=== PATIENT | female | born 1940 | race Caucasian/White ===

== ENCOUNTER 2018-09-20 17:07 | Observation (INO) | payer OTHER, MEDICAID ==
[~2018-09-20] VITALS: Ht 160 cm; Wt 77.8 kg
[2018-09-20] MEDS ORDERED: ASPIRIN 81 MG TAB PO STA (17:59)
[2018-09-20] MEDS ORDERED: NITROGLYCERIN 2% 1 GM OINT PKT TD STA (17:59)
[2018-09-20] MEDS ORDERED: NITROGLYCERIN (SL) 0.4 MG TAB SL PRN ×2 (18:00→22:00)
[2018-09-20] MEDS ORDERED: TOLT4CAP13 PO (18:38)
[2018-09-20] MEDS ORDERED: ASPI-817 PO (18:39)
[2018-09-20] MEDS ORDERED: DOCU-144 PO (18:39)
[2018-09-20] MEDS ORDERED: CALC-43 PO (18:39)
[2018-09-20] MEDS ORDERED: ATOR20TA38 PO (18:40)
[2018-09-20] MEDS ORDERED: LOSA50TA14 PO (18:40)
[2018-09-20] MEDS ORDERED: HYDR25TA6 PO (18:41)
[2018-09-20] MEDS ORDERED: ACAR25TA8 PO (18:41)
[2018-09-20] MEDS ORDERED: RANI150T5 PO (18:41)
[2018-09-20] MEDS ORDERED: LORA10TA3 PO (18:42)
[2018-09-20] MEDS ORDERED: SULF1TAB31 PO (18:42)
[2018-09-20] MEDS ORDERED: ACETAMINOPHEN 325 MG TAB PO PRN ×2 (19:30→22:00)
[2018-09-20] MEDS ORDERED: ONDANSETRON 4 MG INJ IV PRN ×2 (19:30→22:00)
--- NOTE | 2018-09-20 19:31 | ERD ---
ER Documentation Chief Complaint Chief Complaint CHEST PAIN X 3 DAYS HPI Patient is a 78-year-old female with hypertension and diabetes who presents with chest pain. The patient was sent by Dr. Gordon her primary doctor for chest pain and abnormal EKG. The pain is left-sided and started yesterday. She says that it just a constant pain. She has had no treatment as of yet. ROS All systems reviewed and are negative except as per history of present illness. Medications Home Meds Reported Medications Sulfamethoxazole/Trimethoprim* (Bactrim Ds* Tablet) 1 Each Tablet, 1 TAB PO BID, TAB END DATE 09/20/18 09/20/18 Loratadine* (Loratadine*) 10 Mg Tablet, 10 MG PO DAILY, #30 TAB 09/20/18 Ranitidine Hcl* (Ranitidine Hcl*) 150 Mg Tablet, 150 MG PO Q12, #60 TAB 09/20/18 Acarbose* (Precose*) 25 Mg Tablet, 25 MG PO WITH BREAKFAST, TAB 09/20/18 Hydrochlorothiazide* (Hydrochlorothiazide*) 25 Mg Tab, 25 MG PO DAILY, #30 TAB 09/20/18 Losartan Potassium* (Losartan Potassium*) 50 Mg Tablet, 50 MG PO DAILY, TAB 09/20/18 Atorvastatin Calcium* (Atorvastatin Calcium*) 20 Mg Tablet, 20 MG PO QHS, #30 TAB 09/20/18 Docusate Sodium* (Colace*) 100 Mg Capsule, 100 MG PO BID, #60 CAP 09/20/18 Aspirin* (Aspirin* EC) 81 Mg Tablet.dr, 81 MG PO DAILY, TAB 09/20/18 Calcium Carbonate/Vitamin D3 (Calcium 500 + Vit D 400 Tablet) 1 Each Tablet, 1 EACH PO BID, TAB 09/20/18 Tolterodine Tartrate* (Tolterodine Tartrate* ER) 4 Mg Cap.er.24h, 4 MG PO DAILY, #30 CAP 09/20/18 Allergies Allergies: Coded Allergies: No Known Allergy (Verified , 09/20/18) FmHx Family History: coronary disease Physical Exam Vitals Vital Signs Date Temp Pulse Resp B/P (MAP) Pulse Ox O2 O2 Flow FiO2 Time Delivery Rate 09/20/18 87 20 101/69 99 Room Air 18:46 (80) 09/20/18 98.0 78 18 245/154 94 17:12 (184) Physical Exam Const: No acute distress Head: Atraumatic Eyes: Normal Conjunctiva ENT: Normal External Ears, Nose and Mouth. Neck: Full range of motion. No meningismus. Resp: Clear to auscultation bilaterally Cardio: Regular rate and rhythm, no murmurs Abd: Soft, non tender, non distended. Normal bowel sounds Skin: No petechiae or rashes Back: No midline or flank tenderness Ext: No cyanosis, or edema Neur: Awake and alert Psych: Normal Mood and Affect Result Diagram: 09/20/18180909/20/181809 Results 24 hrs Laboratory Tests Test 09/20/18 18:10 White Blood Count 9.0 10^3/ul Red Blood Count 5.00 10^6/ul Hemoglobin 14.9 g/dl Hematocrit 45.9 % Mean Corpuscular Volume 91.8 fl Mean Corpuscular Hemoglobin 29.8 pg Mean Corpuscular Hemoglobin Concent 32.5 g/dl Red Cell Distribution Width 13.7 % Platelet Count 245 10^3/UL Mean Platelet Volume 10.6 fl Immature Granulocytes % 0.600 % Neutrophils % 65.0 % Lymphocytes % 23.7 % Monocytes % 8.3 % Eosinophils % 2.0 % Basophils % 0.4 % Nucleated Red Blood Cells % 0.0 /100WBC Immature Granulocytes # 0.050 10^3/ul Neutrophils # 5.9 10^3/ul Lymphocytes # 2.1 10^3/ul Monocytes # 0.8 10^3/ul Eosinophils # 0.2 10^3/ul Basophils # 0.0 10^3/ul Nucleated Red Blood Cells # 0.0 10^3/ul Sodium Level 137 mmol/L Potassium Level 4.7 mmol/L Chloride Level 99 mmol/L Carbon Dioxide Level 29 mmol/L Anion Gap 9 Blood Urea Nitrogen 19 mg/dl Creatinine 1.01 mg/dl Est Glomerular Filtrat Rate mL/min mL/min Glucose Level 128 mg/dl Calcium Level 9.9 mg/dl Troponin I < 0.012 ng/ml Current Medications Medications Dose Sig/Any Start Time Status Last (Trade) Ordered Route PRN Stop Time Admin Dose Reason Admin Aspirin 162 mg ONCE STAT 09/20/18 DC 09/20/18 (Aspirin) PO 17:59 18:26 09/20/18 18:00 1 inch ONCE STAT 09/20/18 DC 09/20/18 Nitroglycerin TD 17:59 18:26 09/20/18 18:00 (Nitroglyceri n 2% Oint) 1 tab Q5M UP TO 3 09/20/18 09/20/18 Nitroglycerin DOSES PRN 18:00 18:27 SL .CHEST (Nitroglyceri PAIN n (Sl Tab) 0.4 Mg) Ondansetron 4 mg ER BRIDGE 09/20/18 HCl (Zofran PRN IV 19:30 Inj) NAUSEA/VOMITI 09/21/18 19:29 NG 650 mg ER BRIDGE 09/20/18 Acetaminophen PRN PO 19:30 (Tylenol .MILD PAIN 09/21/18 19:29 Tab) 1-3 OR TEMP Procedures/MDM EKG read by me: Rate/Rhythm: Regular rate and rhythm at a normal rate Intervals: Normal Impression: No evidence of ischemia or arrhythmia Chest x-ray read by radiology. Patient is a 78-year-old female with multiple cardiac risk factors who presents with chest pain. I am concerned for potential acute coronary syndrome. Initial troponin is negative. I doubt pneumonia, pneumothorax, pulmonary embolism, or aortic dissection. The patient will be admitted to a telemetry observation bed under the care of Dr. Olivier. The patient was given aspirin and nitroglycerin. Departure Diagnosis: Primary Impression: Chest pain Chest pain type: unspecified Qualified Codes: R07.9 - Chest pain, unspecified Condition: EH Soni MD Sep 20, 2018 19:31
[2018-09-20] MEDS ORDERED: morphine 4 MG/ML VIAL IV STA (20:45)
--- NOTE | 2018-09-20 21:54 | HP ---
Date/Time of Note Date/Time of Note DATE: 09/20/18 TIME: 21:53 Assessment/Plan VTE Prophylaxis Pharmacological prophylaxis: heparin Lines/Catheters IV Catheter Type (from Nrsg): Saline Lock Assessment/Plan Hospital Course Objective Physical exam General: Patient is laying in bed and answers questions appropriately Mentation: Patient is alert and oriented 4, Head: Normocephalic atraumatic Eyes: EOMI, pupils reactive to light Neck: Supple, nontender, midline Respiratory: Clear to auscultation bilaterally Cardiovascular: regular rate, no obvious murmurs Gastrointestinal: non-tender to palpation, bowel sounds heard. Neurological: Moves all extremities spontaneously Skin: No new skin lesions Assessment and plan Chest pain -Rule out ACS -EKG noted -Troponin negative, will continue to trend -Echocardiogram pending -If chest pain began yesterday, if true PA, troponin should have been elevated already, this is unlikely an PA but most likely musculoskeletal discomfort -Aspirin, statin Diabetes mellitus -Insulin sliding scale while in house Hypertension -Continue home meds Disposition -Rule out ACS, likely DC tomorrow if troponins negative. Result Diagram: 09/20/18 1810 09/20/18 1810 Results 24hrs Laboratory Tests Test 09/20/18 18:10 White Blood Count 9.0 Red Blood Count 5.00 Hemoglobin 14.9 Hematocrit 45.9 Mean Corpuscular Volume 91.8 Mean Corpuscular Hemoglobin 29.8 Mean Corpuscular Hemoglobin Concent 32.5 Red Cell Distribution Width 13.7 Platelet Count 245 Mean Platelet Volume 10.6 H Immature Granulocytes % 0.600 H Neutrophils % 65.0 Lymphocytes % 23.7 Monocytes % 8.3 Eosinophils % 2.0 Basophils % 0.4 Nucleated Red Blood Cells % 0.0 Immature Granulocytes # 0.050 H Neutrophils # 5.9 Lymphocytes # 2.1 Monocytes # 0.8 Eosinophils # 0.2 Basophils # 0.0 Nucleated Red Blood Cells # 0.0 Sodium Level 137 Potassium Level 4.7 Chloride Level 99 Carbon Dioxide Level 29 Anion Gap 9 Blood Urea Nitrogen 19 Creatinine 1.01 H Est Glomerular Filtrat Rate mL/min Glucose Level 128 Calcium Level 9.9 Troponin I < 0.012 HPI/ROS Admit Date/Time Admit Date/Time Hx of Present Illness Patient is a female the past medical history significant for hypertension and diabetes mellitus who presents to [facility] after being sent by her primary care doctor to get chest pain rule out. According to patient and patient's family at bedside who helped with the story patient was having left-sided chest pain since yesterday at an unspecified time. Patient states that although it is mildly improved it is still persistent. Patient states that there was mild radiation to the left neck and some to the left upper extremity. Patient otherwise appears comfortable and denies any shortness of breath abdominal pain, nausea, vomiting, leg pain, headache. PMH/Family/Social Past Medical History Medications Current Medications Nitroglycerin (Nitroglycerin (Sl Tab) 0.4 Mg) 1 tab Q5M UP TO 3 DOSES PRN SL . CHEST PAIN Last administered on 09/20/18at 18:27; Admin Dose 1 TAB; Start 09/20/18 at 18:00 Ondansetron HCl (Zofran Inj) 4 mg ER BRIDGE PRN IV NAUSEA/VOMITING; Start 09/20/18 at 19:30; Stop 09/21/18 at 19:29 Acetaminophen (Tylenol Tab) 650 mg ER BRIDGE PRN PO .MILD PAIN 1-3 OR TEMP Last administered on 09/20/18at 21:07; Admin Dose 650 MG; Start 09/20/18 at 19:30; Stop 09/21/18 at 19:29 Atorvastatin Calcium (Lipitor) 80 mg HS PO ; Start 09/20/18 at 22:00 Coded Allergies: No Known Allergy (Verified , 09/20/18) Social History Smoking Status: Never smoker Exam/Review of Systems Vital Signs Vitals Vital Signs Date Temp Pulse Resp B/P (MAP) Pulse Ox O2 O2 Flow FiO2 Time Delivery Rate 09/20/18 Nasal 2 21:11 Cannula 09/20/18 75 15 101/62 95 21:07 (75) 09/20/18 98.0 17:12 TERRY HARGROVE Sep 20, 2018 21:54
[2018-09-20] MEDS ORDERED: ATORVASTATIN 80 MG TAB PO SCH (22:00)
[2018-09-20] MEDS ORDERED: GLUCOSE GEL 15 GRAM TUBE PO PRN ×2 (22:00)
[2018-09-20] MEDS ORDERED: HYDROCODONE/APAP (5/325) TAB PO PRN (22:00)
[2018-09-20] MEDS ORDERED: DEXTROSE 50% 50 ML SYRINGE IV PRN ×2 (22:00)
[2018-09-20] MEDS ORDERED: GLUCOSE GEL 15 GRAM TUBE BUCCAL PRN (22:00)
[2018-09-20] MEDS ORDERED: GLUCAGON 1 MG INJ IM PRN (22:00)
[2018-09-20] MEDS ORDERED: morphine 2 MG INJ IV PRN (22:00)
[2018-09-20] MEDS ORDERED: NACL 0.9% 3 ML SYG IV SCH (22:00)
[2018-09-20 22:10] VITALS: BP 118/56; PULSE 70; RESP 20; Ht 160 cm; Wt 77.8 kg
[2018-09-20 22:21] VITALS: PULSE 70
[2018-09-20] MEDS: HEPARIN 5,000 UNIT/1 ML VIAL SC SCH (23:04)
[2018-09-21] VITALS (9 sets, daily range): BP systolic 105–140; BP diastolic 51–60; PULSE 69–88; RESP 16–20
[2018-09-21] MEDS ORDERED: ACCU-CHEK XX SCH (02:00)
[2018-09-21] MEDS: HEPARIN 5,000 UNIT/1 ML VIAL SC SCH ×2 (05:34→15:04)
[2018-09-21] MEDS: INSULIN ASPART [NOVOLOG] 3 ML PEN SC SCH ×3 (07:55→17:21)
[2018-09-21] MEDS ORDERED: LORATADINE 10 MG TAB PO SCH (09:00)
[2018-09-21] MEDS ORDERED: LOSARTAN 50 MG TAB PO SCH (09:00)
[2018-09-21] MEDS ORDERED: TOLTERODINE (SR) 4 MG CAP PO SCH (09:00)
[2018-09-21] MEDS ORDERED: HYDROCHLOROTHIAZIDE 25 MG TAB PO SCH (09:00)
[2018-09-21] MEDS ORDERED: ASPIRIN (EC) 81 MG TAB PO SCH (09:00)
[2018-09-21] MEDS ORDERED: RANITIDINE 150 MG TAB PO SCH (09:00)
--- NOTE | 2018-09-21 11:24 | PDOCDIS ---
Discharge Instructions CONDITION [id number] Patient Condition: [id number] Good HOME CARE INSTRUCTIONS: [id number] Diet Instructions: [id number] Regular ACTIVITY: [id number] Activity Restrictions: [id number] No Restrictions FOLLOW UP/APPOINTMENTS Follow-up Plan FOLLOW UP WITH YOUR PRIMARY CARE PHYSICIAN IN 1-2 WEEKS LARRY DILLARD Sep 21, 2018 11:24
--- NOTE | 2018-09-21 11:26 | DS ---
Date/Time of Note Date/Time of Note DATE: 09/21/18 TIME: 11:24 Discharge Summary Admission/Discharge Info Admit Date/Time Sep 20, 2018 at 19:08 Discharge Date/Time September 21, 2018 Discharge Diagnosis Chest pain secondary to musculoskeletal pain -ACS ruled out Diabetes mellitus -Continue home meds Hypertension -Continue home meds Patient Condition: Good Hospital Course Patient is a 78-year-old female with a history of hypertension and diabetes, patient presents with chest pain that was reproducible with palpation. ACS was ruled out, pain is muscular in nature, on day of discharge patient vitals, labs of exam are stable. Home Meds Reported Medications Sulfamethoxazole/Trimethoprim* (Bactrim Ds* Tablet) 1 Each Tablet, 1 TAB PO BID, TAB END DATE 09/20/18 09/20/18 Loratadine* (Loratadine*) 10 Mg Tablet, 10 MG PO DAILY, #30 TAB 09/20/18 Ranitidine Hcl* (Ranitidine Hcl*) 150 Mg Tablet, 150 MG PO Q12, #60 TAB 09/20/18 Acarbose* (Precose*) 25 Mg Tablet, 25 MG PO WITH BREAKFAST, TAB 09/20/18 Hydrochlorothiazide* (Hydrochlorothiazide*) 25 Mg Tab, 25 MG PO DAILY, #30 TAB 09/20/18 Losartan Potassium* (Losartan Potassium*) 50 Mg Tablet, 50 MG PO DAILY, TAB 09/20/18 Atorvastatin Calcium* (Atorvastatin Calcium*) 20 Mg Tablet, 20 MG PO QHS, #30 TAB 09/20/18 Docusate Sodium* (Colace*) 100 Mg Capsule, 100 MG PO BID, #60 CAP 09/20/18 Aspirin* (Aspirin* EC) 81 Mg Tablet.dr, 81 MG PO DAILY, TAB 09/20/18 Calcium Carbonate/Vitamin D3 (Calcium 500 + Vit D 400 Tablet) 1 Each Tablet, 1 EACH PO BID, TAB 09/20/18 Tolterodine Tartrate* (Tolterodine Tartrate* ER) 4 Mg Cap.er.24h, 4 MG PO DAILY, #30 CAP 09/20/18 Follow-up Plan FOLLOW UP WITH YOUR PRIMARY CARE PHYSICIAN IN 1-2 WEEKS Primary Care Provider Not On Staff Doctor Time spent on discharge: > 30 minutes LARRY DILLARD Sep 21, 2018 11:26
--- NOTE | 2018-09-21 17:47 | RADRPT ---
Echocardiogram Report Patient Name: Valerie GIBSON ID: [id number] : 1940 (78y )Study Date: 09/21/2018 3:31:10 PM Gender: FAccession #: [id number] Tech: Location: Ref.Physician: TERRY HARGROVE Height(Cm): 152 BSA: 1.78Weight(Kg): 74.8 Quality: Technically Difficult StudyAccount #: Procedures: Echocardiographic Report: Transthoracic echocardiogram with 2D, M-Mode, and doppler examination, poor subcostal images. Indications: Chest Pain. Measurements: 2D/M Mode Doppler Measurement Value Normal Range Measurement Value Normal Range LVIDd 2D 4.4 [ 3.8 - 5.2 ] cm AV Peak Amando 1.6 [ 100.0 - 170.0 ] cm/se c LVIDs 2D 2.3 [ 2.2 - 3.5 ] cm AV Peak PG 10.0 [ 2.0 - 9.0 ] mmHg LVPWd 2D 0.9 [ 0.6 - 0.9 ] cm LVOT Peak Amando 0.8 [ 70.0 - 110.0 ] cm/sec IVSd 2D 1.0 [ 0.6 - 0.9 ] cm LVOT Peak PG 2.0 [ 2.0 - 6.0 ] mmHg AoR Diam 2D 3.3 [ 2.3 - 3.1 ] cm MV E Peak Amando 0.6 [ 60.0 - 130.0 ] cm/sec EDV 2D 86.3 [ 46.0 - 106.0 ] ml MV A Peak Amando 1.1 [ 100.0 - 120.0 ] cm/se c ESV 2D 18.7 [ 14.0 - 42.0 ] ml MV E/A 0.5 [ 0.8 - 1.5 ] ratio EF 2D 78.3 [ 54.0 - 74.0 ] percent MV PHT 78.0 [ 20.0 - 100.0 ] msec LA Dimen 2D 3.3 [ 2.7 - 3.8 ] cm MV Decel Time 267 [ 104 - 258 ] msec MV Decel [place] 2 Lat E` Amando 0.1 [ 10.0 - 15.0 ] cm/sec Lateral E/E` 9.2 [ 1.0 - 2.0 ] ratio Med E` Amando 0.0 cm/sec MV E/A 0.5 [ 0.8 - 1.5 ] ratio MVA PHT 2.8 [ 2.0 - 4.0 ] cm2 PV Peak Amando 0.9 [ 40.0 - 80.0 ] cm/sec PV Peak PG 3.0 mmHg Findings: Left Ventricle: Normal left ventricular systolic function. Normal left ventricular cavity size. Normal left ventricular wall thickness. Ejection fraction is visually estimated at 60-65 %. Tissue Doppler/Mitral Doppler indices are consistent with impaired relaxation (Stage I diastolic dysfunction). E/E'= 6. Right Ventricle: Normal right ventricular size. Left Atrium: The left atrium is normal in size. Right Atrium: The right atrium is normal in size. Atrial Septum: Not well visualized. Mitral Valve: Normal appearance and function of the mitral valve with trace physiologic regurgitation. Aortic Valve: No hemodynamically significant aortic stenosis by doppler. Trileaflet aortic valve. Mild aortic valve regurgitation by color flow Doppler, patient couldn't hold breath for AI PHT. Tricuspid Valve: Normal appearance and function of the tricuspid valve with trace physiologic regurgitation. Pulmonic Valve: Normal pulmonic valve appearance. There is trace pulmonic regurgitation. Pericardium: Normal pericardium with no significant pericardial effusion. Aorta: Normal aortic root. IVC: The IVC is not well visualized. Pulmonary Artery: Normal pulmonary artery size. Conclusions: Normal left ventricular systolic function. Normal left ventricular cavity size. Normal left ventricular wall thickness. Ejection fraction is visually estimated at 60-65 %. Tissue Doppler/Mitral Doppler indices are consistent with impaired relaxation (Stage I diastolic dysfunction). E/E'= 6. Normal appearance and function of the mitral valve with trace physiologic regurgitation. No hemodynamically significant aortic stenosis by doppler. Trileaflet aortic valve. Mild aortic valve regurgitation by color flow Doppler, patient couldn't hold breath for AI PHT. Normal appearance and function of the tricuspid valve with trace physiologic regurgitation. Normal pericardium with no significant pericardial effusion. Electronically Signed By: Yrn Beard 2018-09-21 17:46:13 PST
== END 2018-09-21 18:50 | disposition home or self-care (01) ==
LOC: E/R 17:07 → TEL 19:08
PROVIDERS: ADMIT Internal Medicine; ATTEND Internal Medicine
DX: R07.89 Other chest pain (principal); I10 Essential (primary) hypertension; E11.9 Type 2 diabetes mellitus without complications; Z79.82 Long term (current) use of aspirin
CPT/HCPCS: 71045; 80048; 80053; 80061; 82550; 82553; 82962; 83036; 83735; 84443; 84484; 85025; 93005; 93306; 99285; G0378; J1644; J1815